=== PATIENT | male | born 1975 | race Caucasian/White ===

== ENCOUNTER 2022-06-12 21:13 | Emergency (ER) | payer MEDICAID ==
[2022-06-12] MEDS ORDERED: cefTRIAXone 1 GM, Lidocaine 1% 2.1 ML IM ONE ×2 (21:47)
[2022-06-12] MEDS ORDERED: HYDROmorphone 1 MG/ML Syringe IM ONE (21:47)
== END 2022-06-12 22:23 | disposition home or self-care (01) ==
LOC: JP.ED 21:13
DX: K02.9 Dental caries, unspecified (principal); Z88.0 Allergy status to penicillin
CPT/HCPCS: 96372; 99282; 99283; J0696; J1170

== ENCOUNTER 2022-06-14 12:41 | Emergency (ER) | payer MEDICAID ==
[2022-06-14] MEDS ORDERED: oxyCODONE 5 MG Tab PO ONE (13:06)
[2022-06-14] MEDS ORDERED: Clindamycin HCl 150 MG Cap PO ONE (13:06)
== END 2022-06-14 13:47 | disposition home or self-care (01) ==
LOC: JP.ED 12:41
DX: K04.7 Periapical abscess without sinus (principal); K02.9 Dental caries, unspecified; Z88.0 Allergy status to penicillin
CPT/HCPCS: 99282; 99283; A9270-GY